=== PATIENT | male | born 1985 | race Caucasian/White ===

== ENCOUNTER → 2017-04-21 | Outpatient (CLI) | payer BC ==
[2017-04-22 12:42] LABS: CONTROL LINE MONO RF C INT CTR LINE PRESENT
[2017-04-22 12:44] LABS: BASO % 0.4 % (0.0-1.0); EOS # 0.3 K/mm3 (0.0-0.50); EOS % 2.7 % (0.0-3.0); LARGE UNSTAINED CELL % 0.3 % (0.0-4.0); LYMPH # 0.5 K/mm3 (1.5-4.5); LYMPH % 4.5 % (24.0-44.0); MEAN CORPUSCULAR HEMOGLOBIN 30.2 pg (27.0-33.0); MEAN CORPUSCULAR HGB CONC 34.9 g/dl (32.0-36.5); MEAN CORPUSCULAR VOLUME 86.4 fl (80.0-96.0); MONO # 0.4 K/mm3 (0.0-0.8); MONO % 3.6 % (0.0-5.0); NEUTROPHILS % 88.4 % (36.0-66.0); PLATELET COUNT, AUTOMATED 156 k/mm3 (150-450); RED CELL DISTRIBUTION WIDTH 12.9 % (11.5-14.5); WHITE BLOOD COUNT 10.2 K/mm3 (4.0-10.0)
[2017-04-24 00:06] LABS: Lyme Disease IgG/IgM Antibodie <0.91 ISR (0.00-0.90); Lyme Disease IgM Ab Quantitati <0.80 index (0.00-0.79)
== END ==
LOC: M ADAMS 19:01
PROVIDERS: ATTEND Physician Assistant Medical
DX: R50.9 Fever, unspecified (principal)

== ENCOUNTER → 2019-01-11 | Outpatient (REF) | payer BC | LOC: M LAB REF 12:37 | PROVIDERS: ATTEND Physician Assistant Medical | DX: J02.9 Acute pharyngitis, unspecified (principal) ==

== ENCOUNTER → 2021-12-11 | Outpatient (CLI) | payer OTHER | LOC: M RAD 09:47 | PROVIDERS: ATTEND Nurse Practitioner Women's Health | DX: N50.89 Other specified disorders of the male genital organs (principal) ==

== ENCOUNTER → 2022-02-21 | Outpatient (REF) | payer OTHER | LOC: M SMT 13:01 | PROVIDERS: ATTEND Urology | DX: Z30.2 Encounter for sterilization (principal) ==

== ENCOUNTER → 2022-04-18 | Outpatient (REF) | payer OTHER ==
[2022-04-18 10:09] LABS: SEMEN APPEARANCE OPAQUE (OPAQUE); SEMEN VISCOSITY LIQUID (LIQUID); SEMEN VOLUME 3.2 ml (2.0-5.0); WBC CONCENTRATION <=1 M/ml (<=1 M/ml)
== END ==
LOC: M SMT 08:49
PROVIDERS: ATTEND Urology
DX: Z30.8 Encounter for other contraceptive management (principal)

== ENCOUNTER → 2023-08-10 | Outpatient (REF) | payer OTHER ==
[2023-08-10 19:05] LABS: C REACTIVE PROTEIN QUANTITATIV < 0.40 MG/DL (<1.0)
[2023-08-10 19:08] LABS: IMMUNOGLOBULIN A 218.5 MG/DL (40-350)
== END ==
LOC: M LAB REF 16:56
PROVIDERS: ATTEND Internal Medicine
DX: R19.7 Diarrhea, unspecified (principal)

== ENCOUNTER → 2023-09-28 | Outpatient (CLI) | payer OTHER | LOC: M PLAIMG 13:20 | PROVIDERS: ATTEND Otolaryngology | DX: J32.9 Chronic sinusitis, unspecified (principal) ==

== ENCOUNTER 2024-01-04 08:54 | Day surgery (SDC) | payer OTHER ==
[~2024-01-04] VITALS: Ht 177.8 cm; Wt 90.9 kg
[~2024-01-04 08:54] MED LIST: OMEP-173 PO; VITA100093 PO; ZYRTTAB8 PO
[2024-01-04] MEDS: NS 1,000 ML IV ONE (09:09)
[2024-01-04] MEDS ORDERED: LIDOCAINE 2% 100MG/5ML SDV (FOR ANES.) As Ordered ONE (10:01)
[2024-01-04] MEDS ORDERED: propofoL 200 MG/20 ML VIAL As Ordered ONE (10:01)
[2024-01-04] MEDS ORDERED: fentaNYL 100 MCG/2 ML INJECTION As Ordered ONE (10:35)
[2024-01-04 11:51] VITALS: BP 133/89; TEMP 98.1; O2SAT 97
== END 2024-01-04 11:45 | disposition home or self-care (01) ==
LOC: M OPP 08:54
PROVIDERS: ATTEND Internal Medicine Gastroenterology
DX: Z12.11 Encounter for screening for malignant neoplasm of colon (principal); Z80.0 Family history of malignant neoplasm of digestive organs; D12.2 Benign neoplasm of ascending colon; D12.4 Benign neoplasm of descending colon; D12.7 Benign neoplasm of rectosigmoid junction; K64.4 Residual hemorrhoidal skin tags; K64.8 Other hemorrhoids; K57.30 Diverticulosis of large intestine without perforation or abscess without bleeding; K63.5 Polyp of colon; K29.70 Gastritis, unspecified, without bleeding; K31.A0 Gastric intestinal metaplasia, unspecified; Z79.2 Long term (current) use of antibiotics; Z79.899 Other long term (current) drug therapy
CPT/HCPCS: 43239; 45385; 88305; J3010

== ENCOUNTER 2024-09-27 10:49 | Day surgery (SDC) | payer OTHER ==
[~2024-09-27] VITALS: Ht 177.8 cm; Wt 88.9 kg
[~2024-09-27 10:49] MED LIST changes: +CALC500T38 PO; +NS 250 ML IV ONE; +THERTAB52 PO
[2024-09-27] MEDS ORDERED: fentaNYL 100 MCG/2 ML INJECTION As Ordered ONE (12:34)
[2024-09-27] MEDS ORDERED: propofoL 200 MG/20 ML VIAL As Ordered ONE (12:34)
[2024-09-27] MEDS ORDERED: LIDOCAINE 2% 100MG/5ML SDV (FOR ANES.) As Ordered ONE (12:34)
[2024-09-27] MEDS ORDERED: GLYCOPYRROLATE INJ 0.2 MG/ML 2 ML VIAL As Ordered ONE (12:47)
[2024-09-27] MEDS ORDERED: ONDANSETRON 4MG 2ML VIAL As Ordered ONE (12:48)
[2024-09-27 12:54] VITALS: TEMP 97.7
[2024-09-27 13:09] VITALS: BP 133/80; O2SAT 98
== END 2024-09-27 13:16 | disposition home or self-care (01) ==
LOC: M OPP 10:49
PROVIDERS: ATTEND Internal Medicine Gastroenterology
DX: K20.0 Eosinophilic esophagitis (principal); Z87.19 Personal history of other diseases of the digestive system; K21.9 Gastro-esophageal reflux disease without esophagitis; Z79.899 Other long term (current) drug therapy
CPT/HCPCS: 43239; 88305; J2405; J3010

== ENCOUNTER → 2025-08-14 | Outpatient (REF) | payer OTHER ==
[~2025-08-14] MED LIST changes: -NS 250 ML IV ONE
[2025-08-15 23:47] LABS: LDL DIRECT 92 mg/dL (<100)
== END ==
LOC: M LAB REF 12:32
PROVIDERS: ATTEND Internal Medicine
DX: E78.5 Hyperlipidemia, unspecified (principal)